=== PATIENT | female | born 1970 | race Caucasian/White ===

== ENCOUNTER → 2017-04-01 | Emergency (ER) | payer OTHER ==
[~2017-04-01] VITALS: Ht 160 cm; Wt 49.4 kg
[~2017-04-01] MED LIST: AUGMENTIN 875-1 EACH PO; CEPHALEXIN500 MG PO; FLAGYL500 MG PO; HYDROCODON-ACE1 EA10 PO; IBUPROFEN800 MG PO; NORCO 5-325 TA1 EACH PO; PENICILLIN V P500 MG PO; RISPERDAL0.5 MG PO; RISPERDAL1 MG PO; TRAMADOL HCL50 MG PO; VICODIN 5-3001 EACH PO; VISTARIL25 MG PO
== END ==
LOC: ED 15:04
DX: K03.81 Cracked tooth (principal); F17.200 Nicotine dependence, unspecified, uncomplicated; Z90.49 Acquired absence of other specified parts of digestive tract
CPT/HCPCS: 99283

== ENCOUNTER 2017-05-03 06:29 | Emergency (ER) | payer OTHER ==
[~2017-05-03] VITALS: Ht 160 cm; Wt 54.4 kg
[~2017-05-03 06:29] MED LIST changes: -CEPHALEXIN500 MG PO; -TRAMADOL HCL50 MG PO
[2017-05-03] MEDS ORDERED: CEPHALEXIN500 MG PO (06:51)
[2017-05-03] MEDS ORDERED: TRAMADOL HCL50 MG PO (06:51)
== END 2017-05-03 06:58 | disposition home or self-care (01) ==
LOC: ED 06:29
DX: K08.89 Other specified disorders of teeth and supporting structures (principal); F17.200 Nicotine dependence, unspecified, uncomplicated; Z90.49 Acquired absence of other specified parts of digestive tract; Z88.8 Allergy status to other drugs, medicaments and biological substances
CPT/HCPCS: 99283

== ENCOUNTER 2020-12-10 13:13 | Emergency (ER) | payer OTHER ==
[~2020-12-10] VITALS: Ht 160 cm; Wt 61.2 kg
[~2020-12-10 13:13] MED LIST changes: +CEPHALEXIN500 MG PO; +TRAMADOL HCL50 MG PO
[2020-12-10] MEDS ORDERED: PENICILLIN V P500 MG PO (16:49)
== END 2020-12-10 17:11 | disposition home or self-care (01) ==
LOC: ED 13:13
DX: K02.9 Dental caries, unspecified (principal); F17.200 Nicotine dependence, unspecified, uncomplicated; Z88.8 Allergy status to other drugs, medicaments and biological substances
CPT/HCPCS: 99282